=== PATIENT | male | born 1995 | race Caucasian/White ===

== ENCOUNTER 2018-11-17 11:57 | Emergency (ER) | payer MEDICAID ==
[~2018-11-17] VITALS: Ht 180.3 cm; Wt 85.7 kg
[2018-11-17 12:05] VITALS: BP 139/85
== END 2018-11-17 13:38 | disposition home or self-care (01) ==
LOC: ED 11:57
DX: B02.9 Zoster without complications (principal); Z88.0 Allergy status to penicillin; Z88.6 Allergy status to analgesic agent